=== PATIENT | male | born 1990 | race Two or more races ===

== ENCOUNTER 2018-09-24 12:20 | Emergency (ER) | payer OTHER ==
[~2018-09-24] VITALS: Ht 182.9 cm; Wt 77.1 kg
--- NOTE | 2018-09-24 12:35 | NUR ---
ED Nurse Note: PT WALKED IN TO ER TODAY FROM HOME. AOX4. FATHER AT BEDSIDE. PT C/O BILATERAL LEG SWELLING X 2 DAYS AGO. PT STATES HE WAS TOLD HE HAD CLOTS IN BILATERAL LEGS X 4 YEARS AGO AND TO GO TO ER BUT NEVER DID. PT PRESENTS WITH SWELLING TO BILATERAL LEGS BUT CIRCULATION AND SENSATION INTACT, FULL ROM OF BILATERAL LOWER EXTREMITIES, CAP REFILL <3 SECONDS AND MUSCLE STRENGTH 5/5. GAIT STABLE.
--- NOTE | 2018-09-24 13:05 | NUR ---
ED Nurse Note: US AT BEDSIDE
[2018-09-24 13:10] VITALS: BP 126/76
[2018-09-24 13:31] LABS: ANION GAP 8 mmol/L (5-15); BLOOD UREA NITROGEN 13 mg/dL (7-18); CALCIUM 8.9 MG/DL (8.5-10.1); CARBON DIOXIDE 28 MMOL/L (21-32); CHLORIDE 104 MMOL/L (98-107); CREATININE 0.8 MG/DL (0.55-1.30); POTASSIUM 4.2 MMOL/L (3.5-5.1); SODIUM 140 MMOL/L (136-145)
[2018-09-24 13:35] LABS: INR 0.9 (0.9-1.1)
[2018-09-24 13:40] LABS: EOSINOPHILS % (AUTO) 3.1 % (0.0-3.0); HEMATOCRIT 46.4 % (42.0-52.0); HEMOGLOBIN 15.7 G/DL (14.2-18.0); LYMPHOCYTES % (AUTO) 16.5 % (20.0-45.0); MEAN CORPUSCULAR VOLUME 96 FL (80-99); MONOCYTES % (AUTO) 8.6 % (1.0-10.0); NEUTROPHILS % (AUTO) 70.8 % (45.0-75.0); PLATELET COUNT 218 K/UL (150-450); RED BLOOD COUNT 4.85 M/UL (4.70-6.10); RED CELL DISTRIBUTION WIDTH 12.1 % (11.6-14.8); WHITE BLOOD COUNT 10.2 K/UL (4.8-10.8)
[2018-09-24] MEDS ORDERED: NKM (14:03)
[2018-09-24] MEDS ORDERED: Enoxaparin 120 mg inj SUBQ SCH (14:15)
--- NOTE | 2018-09-24 14:18 | NUR ---
ED Nurse Note: PHARMACY CALLED FOR LOVENOX.
--- NOTE | 2018-09-24 14:45 | Emergency Room Report ---
History of Present Illness General Chief Complaint: General Complaint Source: Patient Present Illness HPI 28 YO Male presents to the ED C/O left lower extremity swelling x 2-3 years. Pt. reports that he was previously dx'd with DVT in left leg for which he did not receive tx for. pt. denies pain at this time. Pt denies trauma or fall. Denies CP, SOB, Palpitations, Dizziness or Syncope. Pt. denies hx of drug use. Denies significant PMHx. Reports that elevation of his leg helps to reduce his swelling/symptoms temporarily. Allergies: Coded Allergies: No Known Allergies (Unverified , 09/24/18) Patient History Past Medical History: see triage record Past Surgical History: none Pertinent Family History: none Reviewed Nursing Documentation: PMH: Agreed; PSxH: Agreed Nursing Documentation-PMH Past Medical History: No History, Except For History Of Psychiatric Problem: Yes - Autism Review of Systems All Other Systems: negative except mentioned in HPI Physical Exam Vital Signs Date Time Temp Pulse Resp B/P (MAP) Pulse Ox O2 Delivery O2 Flow Rate FiO2 09/24/18 12:32 98.2 140 18 129/75 98 Room Air Sp02 EP Interpretation: reviewed, normal General Appearance: no apparent distress, alert, GCS 15, non-toxic Head: normocephalic, atraumatic Eyes: bilateral eye normal inspection, bilateral eye PERRL ENT: hearing grossly normal, normal voice Neck: full range of motion Respiratory: lungs clear, normal breath sounds, speaking full sentences Cardiovascular #1: regular rate, rhythm, no edema, normal capillary refill, tachycardia, edema - non pitting LLE swelling. edema Cardiovascular #2: 2+ dorsalis pedis (R), 2+ dorsalis pedis (L) Gastrointestinal: non tender, soft Musculoskeletal: back normal, gait/station normal, normal range of motion, non- tender, Aparna's Sign negative, swelling - LLE calf and ankle Neurologic: alert, oriented x3, responsive, motor strength/tone normal, sensory intact, speech normal, grossly normal Psychiatric: judgement/insight normal Skin: normal color, no rash, warm/dry, well hydrated Medical Decision Making PA Attestation Dr. richard is my supervising Physician whom patient management has been discussed with. Diagnostic Impression: Primary Impression: DVT of lower extremity (deep venous thrombosis) Qualified Codes: I82.432 - Acute embolism and thrombosis of left popliteal vein ER Course 28 YO Male presents to the ED C/O left lower extremity swelling x 2-3 years. Pt. reports that he was previously dx'd with DVT in left leg for which he did not receive tx for. pt. denies pain at this time. Pt denies trauma or fall. Denies CP, SOB, Palpitations, Dizziness or Syncope. Pt. denies hx of drug use. Denies significant PMHx. Reports that elevation of his leg helps to reduce his swelling/symptoms temporarily. Ddx considered but are not limited to Cellulitis, DVT, varicose vein, PAD, Venous insufficiency Vital signs: are WNL, pt. is afebrile H&PE are most consistent with severe medical non-compliance and probable DVT. ORDERS: CMP, CBC with Diff, PT/PTT, Bilateral LE duplex U/s to R/O dvt: LLE POSITIVE FOR ACUTE DVT: POP, PTV, and ATV ED INTERVENTIONS: - NS 1 liter - 1.5mg/kg Lovenox SubQ DISPOSITION: at this time pt. will be admitted to [facility] under Dr. Koch for LLE DVT. Dr. Koch agreed to admit the pt. and to continue pt. care management. ----Patient decided to leave AMA as he states he did not want to be transferred to [facility]. DISPOSITION: . Pt. Requests AMA. - At this time the patient is requesting to leave AGAINST MEDICAL ADVICE. I believe that this patient has the capacity to make decisions on His own. I discussed with the patient the risks of leaving AMA. Some of these risks include delay in diagnosis and treatment, as well as worsening of symptoms, organ damage, and permanent disability or even . After discussing these risks with the patient. He continues to express His want to leave AGAINST MEDICAL ADVICE. I encouraged the patient to return at any time, and that he will be welcome here in the emergency department to continue medical management. --Father is bedside and witnessed to the AMA discussion, encouragement of transfer for treatment as well as patient's final decision. Labs Test 09/24/18 12:58 White Blood Count 10.2 K/UL (4.8-10.8) Red Blood Count 4.85 M/UL (4.70-6.10) Hemoglobin 15.7 G/DL (14.2-18.0) Hematocrit 46.4 % (42.0-52.0) Mean Corpuscular Volume 96 FL (80-99) Mean Corpuscular Hemoglobin 32.5 PG (27.0-31.0) Mean Corpuscular Hemoglobin Concent 33.9 G/DL (32.0-36.0) Red Cell Distribution Width 12.1 % (11.6-14.8) Platelet Count 218 K/UL (150-450) Mean Platelet Volume 7.9 FL (6.5-10.1) Neutrophils (%) (Auto) 70.8 % (45.0-75.0) Lymphocytes (%) (Auto) 16.5 % (20.0-45.0) Monocytes (%) (Auto) 8.6 % (1.0-10.0) Eosinophils (%) (Auto) 3.1 % (0.0-3.0) Basophils (%) (Auto) 1.0 % (0.0-2.0) Prothrombin Time 9.5 SEC (9.30-11.50) Prothromb Time International Ratio 0.9 (0.9-1.1) Activated Partial Thromboplast Time 26 SEC (23-33) Sodium Level 140 MMOL/L (136-145) Potassium Level 4.2 MMOL/L (3.5-5.1) Chloride Level 104 MMOL/L (98-107) Carbon Dioxide Level 28 MMOL/L (21-32) Anion Gap 8 mmol/L (5-15) Blood Urea Nitrogen 13 mg/dL (7-18) Creatinine 0.8 MG/DL (0.55-1.30) Estimat Glomerular Filtration Rate > 60 mL/min (>60) Glucose Level 105 MG/DL (74-106) Calcium Level 8.9 MG/DL (8.5-10.1) Urine Opiates Screen Negative (NEGATIVE) Urine Barbiturates Screen Negative (NEGATIVE) Phencyclidine (PCP) Screen Negative (NEGATIVE) Urine Amphetamines Screen Positive (NEGATIVE) Urine Benzodiazepines Screen Negative (NEGATIVE) Urine Cocaine Screen Negative (NEGATIVE) Urine Marijuana (THC) Screen Negative (NEGATIVE) CT/MRI/US Diagnostic Results CT/MRI/US Diagnostic Results : Imaging Test Ordered: Bilateral Lower Extremity venous duplex US Impression LLE POSITIVE FOR ACUTE DVT: POP, PTV, and ATV Right LLE negative for acute dvt. Last Vital Signs Date Time Temp Pulse Resp B/P (MAP) Pulse Ox O2 Delivery O2 Flow Rate FiO2 09/24/18 13:10 134 18 Room Air 09/24/18 13:10 98.4 126/76 100 Disposition: AGAINST MEDICAL ADVICE Condition: Serious Referrals: [facility],REFERRING (PCP) Cesia El Sep 24, 2018 14:45
--- NOTE | 2018-09-24 15:52 | NUR ---
ED Nurse Note: PT AOX4. ORIENTED TO SELF, , CURRENT MONTH, CURRENT YEAR, LOCATION, AND SITUATION. FATHER AT BEDSIDE. PT DOES NOT WISH TO BE TRANSFERRED. REGISTRATION, PRIMARY RN AND PROVIDER AT BEDSIDE EXPLAINING THAT INSURANCE IS RESPONSIBLE FOR DECIDING CONTINUATION OF CARE BECAUSE HE IS IN STABLE AND TRANSFERRABLE CONDITION PER ERMD. PT STATES THAT IF HE HAS TO TRANSFER TO ANOTHER FACILITY, HE WILL GO WITH HIS FATHER BECAUSE HE WANTS TO "HAVE A CIGARETTE AND LISTEN TO MUSIC ON THE WAY THERE." PT EDUCATED AT LENGTH OF THE RISK AND CONSEQUENCES OF LEAVING THE HOSPITAL AT THIS TIME, INCLUDING , WELL THE BENEFITS OF CONTINUED TREATMENT AND HOSPITALIZATION. PT VERBALIZES UNDERSTANDING. FATHER AT BEDSIDE AND ALSO VERBALIZES UNDERSTANDING. PT'S FATHER STATES "I AM GOING TO DO WHATEVER MY SON WANTS. HE IS AN ADULT." AMA FORM SIGNED BY PT AND WITNESSED BY PRIMARY RN. IV AND ID WRISTBAND REMOVED FROM PT. PT WALKED OUT OF ER WITH STEADY GAIT AND ALL BELONGINGS ACCOMPANIED BY FATHER.
[2018-09-24 16:03] VITALS: BP 122/74
--- NOTE | 2018-09-25 09:59 | Diagnostic Imaging Report ---
Indication: Left lower extremity pain Technique: Grayscale and duplex images of the bilateral lower extremity veins Comparison: none Findings: On the left, grayscale and duplex images demonstrate hypoechoic thrombus within the popliteal vein. This results in absence of flow on Doppler imaging. Thrombus is also seen within the posterior tibial vein and anterior tibial vein. The femoral and common femoral veins are patent, as is a greater saphenous vein. These demonstrate no evidence of intraluminal thrombus, normal compressibility. On the right, grayscale and duplex images demonstrate no evidence of intraluminal thrombus. Normal phasic Doppler waveforms, normal augmentation response, no evidence of valvular insufficiency. Normal compressibility of all deep venous structures on the right. Impression: Positive for left lower extremity popliteal deep venous thrombosis. Deep venous thrombosis is also seen within the calf veins Dr. Garcia previously notified by phone of the findings
== END 2018-09-24 16:06 | disposition left against medical advice (07) ==
LOC: EMR 14:27 → CANBEDREQ 16:03 → EMR 16:06
DX: I82.432 Acute embolism and thrombosis of left popliteal vein (principal); F84.0 Autistic disorder; F17.200 Nicotine dependence, unspecified, uncomplicated; Z53.21 Procedure and treatment not carried out due to patient leaving prior to being seen by health care provider
CPT/HCPCS: 36415; 80048; 80307; 85025; 85610; 85730; 93970; 96360; 96372; 99284; J1650

== ENCOUNTER 2018-09-24 16:58 | Emergency (ER) | payer OTHER ==
[~2018-09-24] VITALS: Ht 180.3 cm; Wt 81.6 kg
[~2018-09-24 16:58] MED LIST: NKM
--- NOTE | 2018-09-24 17:00 | NUR ---
ED Nurse Note: father wants to bring pt after speak with insurance company.
[2018-09-24 17:10] VITALS: BP 126/76
--- NOTE | 2018-09-24 17:10 | NUR ---
ED Nurse Note: PT WAS SEEN AT [facility] AND THEN SIGNED AMA WHEN PT WAS TOLD HE WAS GETTING TRANSFERRED TO [facility] PER HIS INSURANCE. PT RETURNED TO ER FOR SAME SYMPTOMS. PT C/O BILATERAL LEG SWELLING. PT HAS BEEN DIAGNOSED WITH LLE DVT BY SONYA TODAY.
--- NOTE | 2018-09-24 17:38 | Emergency Room Report ---
History of Present Illness General Chief Complaint: General Complaint Source: Family Member (Cesia El) Present Illness HPI This patient presented earlier to the emergency department and left AGAINST MEDICAL ADVICE. He he has now presented again and decided to receive treatment. As I was the treating provider please see my previous note for full history and physical. Patient has no new complaints. (Cesia El) Allergies: Coded Allergies: No Known Allergies (Unverified , 09/24/18) Patient History Past Medical History: see triage record Past Surgical History: none Pertinent Family History: none Reviewed Nursing Documentation: PMH: Agreed; PSxH: Agreed (Cesia El) Nursing Documentation-PMH Past Medical History: No History, Except For Hx Cardiac Problems: No - autism (Cesia El) Review of Systems All Other Systems: negative except mentioned in HPI (Cesia El) Physical Exam Vital Signs Date Time Temp Pulse Resp B/P (MAP) Pulse Ox O2 Delivery O2 Flow Rate FiO2 09/24/18 17:07 98.2 117 18 132/83 100 Room Air Sp02 EP Interpretation: reviewed, normal General Appearance: no apparent distress, alert, GCS 15, non-toxic Head: normocephalic, atraumatic Eyes: bilateral eye normal inspection, bilateral eye PERRL ENT: hearing grossly normal, normal voice Neck: full range of motion Respiratory: lungs clear, normal breath sounds, speaking full sentences Cardiovascular #1: regular rate, rhythm, normal capillary refill Musculoskeletal: back normal, gait/station normal, normal range of motion, non- tender, no calf tenderness, Aparna's Sign negative, swelling - left calf and ankle swelling disproportional to the right lower extremity Neurologic: alert, oriented x3, responsive, motor strength/tone normal, sensory intact, speech normal, grossly normal Psychiatric: judgement/insight normal Skin: normal color, no rash, warm/dry, well hydrated (Cesia El) Medical Decision Making PA Attestation Dr. Navarro is my supervising Physician whom patient management has been discussed with. (Cesia El) Diagnostic Impression: Primary Impression: DVT (deep vein thrombosis) in ER Course This patient presented earlier to the emergency department and left AGAINST MEDICAL ADVICE. He he has now presented again and decided to receive treatment. As I was the treating provider please see my previous note for full history and physical. Patient has no new complaints. Management previous visit several hours ago patient received Lovenox subQ Admission is again initiated and Dr. Koch will be the accepting provider who will be treating this patient for DVT. (Cesia El) ER Course Patient was discussed with Dr. Koch who agreed to accept the patient as transferred to [facility]. (Ryland Navarro MD) Last Vital Signs Date Time Temp Pulse Resp B/P (MAP) Pulse Ox O2 Delivery O2 Flow Rate FiO2 09/24/18 17:07 98.2 117 18 132/83 100 Room Air (Cesia El) Status: improved (Ryland Navarro MD) Disposition: ADMITTED INPATIENT Condition: Serious Cesia El Sep 24, 2018 17:38 Ryland Navarro MD Sep 24, 2018 18:54
--- NOTE | 2018-09-24 18:43 | NUR ---
ED Nurse Note: [facility] CALLED FOR PT REPORT. JAMES RYAN WILL CALL BACK IN 5 MINUTES.
--- NOTE | 2018-09-24 18:56 | NUR ---
ED Nurse Note: JAMES RYAN, ELECTROENCEPHALOGRAM TECHNOLOGIST, FROM [facility] CALLED FOR PT REPORT. REPORT GIVEN. ETA GIVEN TO RN AND RN AWARE. FACILITY READY TO ACCEPT PT.
--- NOTE | 2018-09-24 19:05 | NUR ---
ED Nurse Note: [facility] AT BEDSIDE. REPORT GIVEN TO EMS. PT TAKEN TO [facility] VIA AMBULANCE WITH ALL BELONGINGS.
[2018-09-24 19:06] VITALS: BP 122/74
== END 2018-09-24 19:08 | disposition short-term general hospital (02) ==
LOC: EMR 17:20
DX: I82.432 Acute embolism and thrombosis of left popliteal vein (principal); F17.200 Nicotine dependence, unspecified, uncomplicated; F84.0 Autistic disorder
CPT/HCPCS: 99284